=== PATIENT | female | born 1945 | race Caucasian/White ===

== ENCOUNTER → 2017-06-25 | Outpatient (CLI) | payer MEDICARE, OTHER ==
--- NOTE | 2017-06-25 20:08 | RADIOLOGY IMAGING REPORT ---
[place] [facility] [place] Megha Hidalgo : 1945 MR: [id number] V: [id number] EXAM DATE: ORDERING PHYSICIAN: JOSE MARTIN GARCIA TECHNOLOGIST: Location: Patient: Megha Hidalgo : 1945 Visit/Account:[id number] Date of Sevice: 06/25/2017 EXAMINATION: CT HEAD WITHOUT CONTRAST COMPARISON: 09/20/2016 HISTORY: Fall today. Forehead contusion. PROCEDURE: Noncontrast CT from the vertex through the skull base. One of the following dose optimizat ion techniques was utilized in the performance of this exam: Automated exposure control; adjustment o f the mA and/or kV according to the patient's size; or use of an iterative reconstruction technique. Specific details can be referenced in the facility's radiology CT exam operational policy. FINDINGS: Brain volume: Age-appropriate volume. Hemorrhage/extra-axial fluid: No intracranial hemorrhage or extra-axial fluid collection. Mass effect/midline shift/edema: None. Ischemia: Bass-white differentiation is preserved. Ventricles and basal cisterns: Within normal limits. Posterior fossa: Negative. Vessels: Negative. Calvarium, skull base, and scalp: Calvarium and skull base are intact. Right supraorbital subcutaneou s soft tissue contusion. No radiopaque foreign body. Visualized sinuses and orbits: Visualized paranasal sinuses are clear. Visualized globes are unremark able. IMPRESSION: 1. No intracranial hemorrhage or mass effect. 2. No CT findings of acute ischemia. 3. Right supraorbital subcutaneous soft tissue contusion. Results were discussed with JOSE MARTIN GARCIA at 06/25/2017 8:03 PM. Report Dictated By: Fabio Bishop MD at 06/25/2017 7:48 PM Report E-Signed By: Fabio Bishop MD at 06/25/2017 8:03 PM WSN:[id number]
== END ==
LOC: CT 18:35
PROVIDERS: ATTEND Nurse Practitioner Family
DX: S00.83XA Contusion of other part of head, initial encounter (principal)

== ENCOUNTER → 2018-03-21 | Outpatient (CLI) | payer MEDICARE, OTHER ==
[~2018-03-21] MED LIST: DENOSUMAB 60 MG/1 ML SYR SUBQ ONE
== END ==
LOC: SPU 07:16
PROVIDERS: ATTEND Internal Medicine Endocrinology, Diabetes & Metabolism
DX: M81.0 Age-related osteoporosis without current pathological fracture (principal)
CPT/HCPCS: 96372; J0897

== ENCOUNTER → 2018-09-23 | Outpatient (CLI) | payer MEDICARE, OTHER | LOC: SPU 06:14 | PROVIDERS: ATTEND Internal Medicine Endocrinology, Diabetes & Metabolism | DX: Z02.9 Encounter for administrative examinations, unspecified (principal) ==

== ENCOUNTER → 2018-09-30 | Outpatient (CLI) | payer MEDICARE | LOC: SPU 08:18 | PROVIDERS: ATTEND Internal Medicine Endocrinology, Diabetes & Metabolism | DX: M81.0 Age-related osteoporosis without current pathological fracture (principal) | CPT/HCPCS: 96372; J0897 ==